=== PATIENT | female | born 1930 | race African-American/Black ===

== ENCOUNTER 2019-03-10 14:55 | Emergency (ER) | payer OTHER ==
--- NOTE | 2019-03-10 16:19 | RAD REPORT ---
EXAM DESCRIPTION: RAD - Chest Single View - 03/10/2019 3:50 pm CLINICAL HISTORY: CHEST PAIN Chest pain. COMPARISON: CHEST SINGLE VIEW dated 06/18/2015 FINDINGS: Portable technique limits examination quality. The lungs are grossly clear. The heart is normal in size. No displaced fractures. IMPRESSION: No acute intrathoracic process suspected.
[2019-03-10 16:33] LABS: Absolute Lymphocytes (CBC) 1.2 K/uL (0.7-4.9); Absolute Monocytes 0.4 K/uL (0.1-1.3); Absolute Neutrophil 3.8 K/uL (1.8-8.0); Basophils % 0.8 % (0-1.3); Eosinophils % 2.6 % (0-4.4); Hematocrit 36.2 % (36.0-45.0); Lymphocytes % 21.3 % (15.3-44.8); Monocytes % 7.5 % (3.3-12.3); RBC Red Blood Cell Count 3.99 M/uL (3.86-4.86)
[2019-03-10] MEDS ORDERED: ONDANSETRON 4 MG/2 ML VIAL ONE (16:33)
[2019-03-10] MEDS ORDERED: MORPHINE 2 MG/ML SYR ONE (16:33)
[2019-03-10 16:34] LABS: Protime INR 1.08
--- NOTE | 2019-03-10 16:42 | RAD REPORT ---
EXAM DESCRIPTION: CT - Head Brain Wo Cont - 03/10/2019 4:34 pm CLINICAL HISTORY: SYNCOPE Drowsiness, headache COMPARISON: HEAD BRAIN W O CONTRAST dated 06/18/2015 TECHNIQUE: All CT scans are performed using dose optimization technique as appropriate and may inclu de automated exposure control or mA/KV adjustment according to patient size. FINDINGS: Significant motion degradation is present, limiting the study quality.No gross hemorrhage, hydrocephalus midline shift suspected. The paranasal sinuses and mastoids are clear except for a 2 cm mucous retention cyst in the right max illary antrum. The calvarium is intact. IMPRESSION: Limited motion degraded study without gross acute finding.
[2019-03-10 16:51] LABS: Albumin 3.2 g/dL (3.4-5.0); Bilirubin Direct 0.1 mg/dL (0-0.2); Bilirubin Total 0.2 mg/dL (0.2-1.0); Magnesium 2.3 mg/dL (1.8-2.4); Potassium 4.5 mmol/L (3.5-5.1); Protein, Total 6.8 g/dL (6.4-8.2); Troponin (Emerg Dept Use Only) 0.02 ng/mL (0.0-0.045)
--- NOTE | 2019-03-10 17:30 | ER ---
Nurse's Notes [facility] Name: Reese Owens Age: 88 yrs Sex: Female : 1930 Arrival Date: 03/10/2019 Time: 14:57 Bed 2 Private MD: Diagnosis: Chest pain, unspecified Presentation: 03/10 14:59 Presenting complaint: EMS states: UNKNOWN. EMS CALLED FOR PT CRYING AND AGITATED, bp ANSWERS "HELP ME LORD" TO ALL POSED QUESTIONS. Transition of care: patient was not received from another setting of care. Onset of symptoms is unknown. Risk Assessment: Do you want to hurt yourself or someone else? Patient reports no desire to harm self or others. Initial Sepsis Screen: Does the patient meet any 2 criteria? No. Patient's initial sepsis screen is negative. Does the patient have a suspected source of infection? No. Patient's initial sepsis screen is negative. Care prior to arrival: None. 14:59 Method Of Arrival: EMS: [facility] bp 14:59 Acuity: JOSE MARIA 2 bp Triage Assessment: 15:01 General: Appears distressed, comfortable, slender, Behavior is agitated, anxious, bp crying. Pain: Unable to use pain scale. Does not appear to understand pain scale. EENT: No deficits noted. Neuro: Level of Consciousness is awake, confused, Oriented to none. Cardiovascular: No deficits noted. Respiratory: Airway is patent Respiratory effort is even, unlabored. GI: No signs and/or symptoms were reported involving the gastrointestinal system. : No signs and/or symptoms were reported regarding the genitourinary system. Derm: No deficits noted. Musculoskeletal: Circulation, motion, and sensation intact. Historical: - Allergies: 14:58 No Known Allergies; bp - Home Meds: 14:58 Unable to obtain [Active]; bp - PMHx: 14:58 Dementia; CHF; Hypertension; bp - Immunization history:: Adult Immunizations up to date. - Social history:: Smoking status: unknown. - Ebola Screening: : No symptoms or risks identified at this time. Screenin:03 Abuse screen: Denies threats or abuse. Denies injuries from another. Nutritional bp screening: No deficits noted. Tuberculosis screening: No symptoms or risk factors identified. Fall Risk No fall in past 12 months (0 pts). Secondary diagnosis (15 points) dementia, No IV (0 pts). Ambulatory Aid- None/Bed Rest/Nurse Assist (0 pts). Gait- Weak (10 pts.). Mental Status- Overestimates/Forgets Limitations (15 pts.). Total Vazquez Fall Scale indicates Low Risk Score (25-44 pts). Fall prevention measures have been instituted. Side Rails Up X 2 Placed close to Nursing Station Frequent Obs/Assesments occuring Family Present and informed to notify staff if they need to leave bedside As available Patient and Family Educated on Fall Prevention Program and strategies. Assessment: 15:03 General: SEE TRIAGE NOTE. bp 16:21 Reassessment: PT TO CT. bp 18:28 Reassessment: PT SEEN BY ADMIT MD, PT MEDICATED FOR HTN AND AGITATION. PER ADMIT MD, bp POSSIBLE D/C PENDING RESULTS OF CT. 19:47 General: Appears in no apparent distress. Behavior is drowsy, pt resting with eyes ak1 closed, resp even and unlabored. . Pain: Denies pain. Neuro: Level of Consciousness is pt sleeping after IV Ativan . Cardiovascular: No deficits noted. Respiratory: No deficits noted. GI: No signs and/or symptoms were reported involving the gastrointestinal system. : No signs and/or symptoms were reported regarding the genitourinary system. EENT: No signs and/or symptoms were reported regarding the EENT system. Derm: No signs and/or symptoms reported regarding the dermatologic system. Musculoskeletal: No signs and/or symptoms reported regarding the musculoskeletal system. 22:04 Reassessment: pt remains very drowsy. pt family stated they "had plenty of help" at [place] home to assist getting pt from the car to the house. pt daughter stated she would be staying with the pt over night. . Vital Signs: 15:03 Weight 45.36 kg; bp 15:10 BP 158 / 72; Pulse 82; Resp 24; Temp 98; Pulse Ox 97% ; bp 16:00 BP 156 / 105; Pulse 92; Resp 24; Pulse Ox 97% ; bp 16:20 BP 161 / 72; Pulse 85; Resp 24; Pulse Ox 100% ; bp 17:30 BP 184 / 112; Pulse 89; Resp 18; Pulse Ox 100% ; bp 18:27 BP 148 / 65; Pulse 89; Resp 16; Pulse Ox 98% ; bp 19:48 BP 148 / 61; Pulse 88; Resp 16; Temp 98; Pulse Ox 100% on R/A; Pain 0/10; ak1 ED Course: 14:57 Patient arrived in ED. bp 15:00 Triage completed. bp 15:01 Milad Veliz PA is PHCP. cp 15:01 Bimal Camejo MD is Attending Physician. cp 15:03 Arm band placed on. bp 15:03 Patient has correct armband on for positive identification. Bed in low position. Call bp light in reach. Side rails up X2. Adult w/ patient. 15:10 Maintain EMS IV. Dressing intact. Good blood return noted. Site clean \\T\\ dry. Gauge \\T\\ bp site: 22 GAUGE R WRIST. 15:30 Radiology exam delayed due to pt needs medication for exam. Nurse PJ to call when pt is mw3 ready. 15:41 Macario Malcolm, OSEI is Primary Nurse. bp 15:50 XRAY Chest (1 view) In Process Unspecified. EDMS 16:33 CT completed. Patient tolerated procedure well. Patient moved back from CT. mw3 16:33 CT Head Brain wo Cont In Process Unspecified. EDMS 17:28 Mary Lopez MD is Hospitalizing Provider. cp 17:39 Radiology exam delayed due to pt needs meds before scan. mw3 18:13 CT Chest Abdomen Pelvis W/O Contrast In Process Unspecified. EDMS 18:44 EKG done, by ED staff, reviewed by Milad LAY. kj1 19:48 No provider procedures requiring assistance completed. ak1 22:04 IV discontinued, intact, bleeding controlled, No redness/swelling at site. Pressure ak1 dressing applied. Administered Medications: 16:00 Drug: morphine 2 mg Route: IVP; Site: right wrist; bp 18:08 Follow up: Response: No adverse reaction bp 16:00 Drug: Zofran 4 mg Route: IVP; Site: right wrist; bp 18:09 Follow up: Response: No adverse reaction bp 18:00 Drug: NS 0.9% 250 ml Route: IV; Rate: bolus; Site: right wrist; bp 19:45 Follow up: IV Status: Completed infusion; IV Intake: 250ml ak1 18:00 Drug: Aspirin Chewable Tablet 324 mg Route: PO; bp 18:09 Follow up: Response: No adverse reaction bp 18:00 Drug: Ativan 0.5 mg Route: IVP; Site: right wrist; bp 18:38 Follow up: Response: Anxiety decreased bp Intake: 19:45 IV: 250ml; Total: 250ml. ak1 Outcome: 17:30 Decision to Hospitalize by Provider. cp 19:32 Discharge ordered by MD. cp 22:03 Discharged to home via wheelchair, with family. ak1 22:03 Condition: good 22:03 Discharge instructions given to family, Instructed on discharge instructions, follow up and referral plans. no drinking with medication, no driving heavy equipment, medication usage, Demonstrated understanding of instructions, follow-up care, medications, Prescriptions given X 1. 22:05 Patient left the ED. ak1 Signatures: Dispatcher [employer] EDMS Colleen Lafleur RN RN ak1 Chinyere Lee RN RN ph Milad Veliz, ROSANNE PA Macario Campoverde, OSEI RN bp Betty Vila mw3 Dionne Ayon kj1 Corrections: (The following items were deleted from the chart) 16:07 15:10 BP 158 / 72; Pulse 82bpm; ph bp
--- NOTE | 2019-03-10 17:30 | EDPHYS ---
Physician Documentation [facility] Name: Reese Owens Age: 88 yrs Sex: Female : 1930 Arrival Date: 03/10/2019 Time: 14:57 Bed 2 Private MD: ED Physician Bimal Camejo HPI: 03/10 15:11 This 88 yrs old Black Female presents to ER via EMS with complaints of AGITATION. cp 15:11 The patient or guardian reports chest pain that is located primarily in the anterior cp chest wall. 15:15 Onset: today. cp 15:15 Duration: The patient or guardian reports a single episode. Daughter reports patient cp clutched chest and c/o pain. Patient then seemed to pass out briefly. Historical: - Allergies: 14:58 No Known Allergies; bp - Home Meds: 14:58 Unable to obtain [Active]; bp - PMHx: 14:58 Dementia; CHF; Hypertension; bp - Immunization history:: Adult Immunizations up to date. - Social history:: Smoking status: unknown. - Ebola Screening: : No symptoms or risks identified at this time. ROS: 15:20 Constitutional: Negative for fever, poor PO intake. cp 15:20 Cardiovascular: Positive for chest pain. cp 15:20 Respiratory: Positive for shortness of breath. 15:20 Abdomen/GI: Negative for vomiting, diarrhea. 15:20 Neuro: Negative for altered mental status. 15:20 Unable to obtain ROS due to baseline dementia. Exam: 15:25 ECG was reviewed by the Attending Physician. cp 15:30 Constitutional: The patient appears in no acute distress, alert, awake, cp non-diaphoretic, non-toxic, well developed, well nourished. 15:30 Head/Face: Normocephalic, atraumatic. cp 15:30 Eyes: Periorbital structures: appear normal, Pupils: equal, round, and reactive to light and accomodation, Conjunctiva: normal, no exudate, no injection, Sclera: no appreciated abnormality, Lids and lashes: appear normal, bilaterally. 15:30 ENT: External ear(s): are unremarkable, Ear canal(s): are normal, clear, TM's: dullness, bilaterally, Nose: is normal, Mouth: Lips: moist, Oral mucosa: moist, Posterior pharynx: Airway: no evidence of obstruction, patent. 15:30 Neck: ROM/movement: is normal, is supple, without pain, no range of motions limitations, no meningismus, no nuchal rigidity. 15:30 Chest/axilla: Inspection: normal, Palpation: is normal, no crepitus, no tenderness. 15:30 Cardiovascular: Rate: normal, Rhythm: regular, JVD: is not appreciated. 15:30 Respiratory: the patient does not display signs of respiratory distress, Respirations: normal, no use of accessory muscles, no retractions, no splinting, no tachypnea, labored breathing, is not present, Breath sounds: are clear throughout, no decreased breath sounds, no stridor, no wheezing. 15:30 Abdomen/GI: Inspection: abdomen appears normal, Bowel sounds: active, all quadrants, Palpation: soft, in all quadrants, mild abdominal tenderness, in the right lower quadrant and left lower quadrant, rebound tenderness, is not appreciated, involuntary guarding, is elicited in the right lower quadrant and left lower quadrant. 15:30 Neuro: Orientation: no acute changes, per family, to person, Mentation: no acute changes, per family, Motor: moves all fours. 18:49 ECG was reviewed by the Attending Physician. cp Vital Signs: 15:03 Weight 45.36 kg; bp 15:10 BP 158 / 72; Pulse 82; Resp 24; Temp 98; Pulse Ox 97% ; bp 16:00 BP 156 / 105; Pulse 92; Resp 24; Pulse Ox 97% ; bp 16:20 BP 161 / 72; Pulse 85; Resp 24; Pulse Ox 100% ; bp 17:30 BP 184 / 112; Pulse 89; Resp 18; Pulse Ox 100% ; bp 18:27 BP 148 / 65; Pulse 89; Resp 16; Pulse Ox 98% ; bp 19:48 BP 148 / 61; Pulse 88; Resp 16; Temp 98; Pulse Ox 100% on R/A; Pain 0/10; ak1 MDM: 15:11 Patient medically screened. cp 15:30 Differential diagnosis: abnormal EKG, acute myocardial infarction, pneumonia, cp pneumothorax, unstable angina, UTI, sepsis, CVA. 17:25 Data reviewed: vital signs, nurses notes, lab test result(s), EKG, radiologic studies, cp CT scan, plain films. Physician consultation: Mary Lopez MD was contacted at 17:25, regarding admission, to the telemetry unit. and will see patient in ED, shortly. 18:05 Physician consultation: Mary Lopez MD in the emergency department to see patient at cp 17:35, and felt stable for discharge to home. 18:05 ED course: Will discharge to home if repeat troponin, EKG and CT results negative. cp 03/10 15:10 Order name: Basic Metabolic Panel cp 03/10 15:10 Order name: CBC with Diff cp 03/10 15:10 Order name: LFT's cp 03/10 15:10 Order name: Magnesium cp 03/10 15:10 Order name: NT PRO-BNP; Complete Time: 16:54 cp 03/10 15:10 Order name: PT-INR; Complete Time: 16:54 cp 03/10 15:10 Order name: Troponin (emerg Dept Use Only); Complete Time: 16:54 cp 03/10 15:10 Order name: Urine Microscopic Only; Complete Time: 18:12 cp 03/10 15:10 Order name: Lipase; Complete Time: 16:54 cp 03/10 15:12 Order name: Basic Metabolic Panel; Complete Time: 16:54 EDMS 03/10 16:55 Interpretation: Normal except: NA 146; CL 116; CO2 20; BUN 35; CRE 2.01; GFR 28; CA 8.0.cp 03/10 15:12 Order name: CBC with Automated Diff; Complete Time: 16:54 EDMS 03/10 15:12 Order name: Liver (Hepatic) Function; Complete Time: 16:54 EDMS 03/10 15:12 Order name: Magnesium; Complete Time: 16:54 EDMS 03/10 17:01 Order name: Urine Dipstick--Ancillary (enter results) ms 03/10 15:10 Order name: XRAY Chest (1 view); Complete Time: 16:54 cp 03/10 15:10 Order name: EKG; Complete Time: 15:13 cp 03/10 15:10 Order name: Cardiac monitoring; Complete Time: 16:19 cp 03/10 15:10 Order name: EKG - Nurse/Tech; Complete Time: 16:19 cp 03/10 15:10 Order name: IV Saline Lock; Complete Time: 16:18 cp 03/10 15:10 Order name: Labs collected and sent; Complete Time: 16:18 cp 03/10 15:10 Order name: O2 Per Protocol; Complete Time: 15:54 cp 03/10 15:11 Order name: CT Head Brain wo Cont; Complete Time: 16:54 cp 03/10 17:16 Order name: CT Chest Abdomen Pelvis W/O Contrast; Complete Time: 18:23 cp 03/10 18:12 Order name: EKG; Complete Time: 18:15 cp 03/10 18:12 Order name: Troponin I; Complete Time: 19:32 cp 03/10 15:10 Order name: O2 Sat Monitoring; Complete Time: 15:54 cp 03/10 15:10 Order name: Urine Dipstick-Ancillary (obtain specimen); Complete Time: 18:47 cp 03/10 17:25 Order name: Swallow Screen; Complete Time: 18:10 03/10 18:12 Order name: EKG - Nurse/Tech; Complete Time: 18:37 cp EC:25 Rate is 89 beats/min. Rhythm is regular. NE interval is normal. QRS interval is cp prolonged at 102 msec. QT interval is normal. T waves are Inverted in leads V4, V5, V6. Interpreted by me. Reviewed by me. 18:49 Rate is 85 beats/min. Rhythm is regular. NE interval is normal. QRS interval is normal cp at 100 msec. QT interval is prolonged at 400 msec. T waves are Inverted in leads V4, V5, V6. Interpreted by me. Reviewed by me. Administered Medications: 16:00 Drug: morphine 2 mg Route: IVP; Site: right wrist; bp 18:08 Follow up: Response: No adverse reaction bp 16:00 Drug: Zofran 4 mg Route: IVP; Site: right wrist; bp 18:09 Follow up: Response: No adverse reaction bp 18:00 Drug: NS 0.9% 250 ml Route: IV; Rate: bolus; Site: right wrist; bp 19:45 Follow up: IV Status: Completed infusion; IV Intake: 250ml ak1 18:00 Drug: Aspirin Chewable Tablet 324 mg Route: PO; bp 18:09 Follow up: Response: No adverse reaction bp 18:00 Drug: Ativan 0.5 mg Route: IVP; Site: right wrist; bp 18:38 Follow up: Response: Anxiety decreased bp Disposition: 20:30 Chart complete. 03/11 12:52 Co-signature as Attending Physician, Bimal Camejo MD. Disposition: 03/10/19 19:32 Discharged to Home. Impression: Chest pain, unspecified. - Condition is Stable. - Discharge Instructions: Nonspecific Chest Pain, Aspirin and Your Heart. - Prescriptions for Pepcid 20 mg Oral Tablet - take 1 tablet by ORAL route every 12 hours for 10 days; 20 tablet. - Medication Reconciliation Form, Thank You Letter, Antibiotic Education, Prescription Opioid Use form. - Follow up: Private Physician; When: 2 - 3 days; Reason: Recheck today's complaints. - Problem is new. - Symptoms have improved. Signatures: Dispatcher [employer] EDMS Colleen Lafleur RN RN ak1 Milad Veliz PA PA Bimal De La Rosa MD MD Macario Malcolm RN RN bp Corrections: (The following items were deleted from the chart) 03/10 16:55 16:55 Normal except: NA 146; CL 116; CO2 20; BUN 35; CRE 2.01; GFR 28. cp cp 18:11 17:30 Hospitalization Ordered by Mary Lopez MD for Observation. Preliminary cp diagnosis is Chest pain, unspecified; Syncope and collapse. Bed requested for Telemetry/MedSurg (observation). Status is Observation. Condition is Stable. Problem is new. Symptoms have improved. UTI on Admission? No. cp 18:54 15:12 Llamas ordered. cp bp 22:05 19:32 03/10/2019 19:32 Discharged to Home. Impression: Chest pain, unspecified. ak1 Condition is Stable. Forms are Medication Reconciliation Form, Thank You Letter, Antibiotic Education, Prescription Opioid Use. Follow up: Private Physician; When: 2 - 3 days; Reason: Recheck today's complaints. Problem is new. Symptoms have improved. cp
[2019-03-10 17:55] LABS: Urine Bacteria <20 /HPF (<20); Urine Culture Reflex Order NOT NEEDED; Urine RBC <5 /HPF (NONE SEEN)
--- NOTE | 2019-03-10 18:19 | RAD REPORT ---
EXAM DESCRIPTION: CT - Chest Abd Pelvis Wo Con - 03/10/2019 6:10 pm CLINICAL HISTORY: Chest and abdomen pain. lower abdomen pain;Chest pain COMPARISON: No comparisons TECHNIQUE: A limited noncontrast study was performed. All CT scans are performed using dose optimization technique as appropriate and may include automated exposure control or mA/KV adjustment according to patient size. FINDINGS: The lungs are mildly emphysematous but clear.No pleural or pericardial effusion.No intrath oracic adenopathy. The liver, spleen, pancreas, adrenal glands and kidneys are within normal limits. No bowel obstruction, free air, free fluid or abscess. The appendix is not identified as a discrete s tructure, however, no secondary findings of appendicitis are identified. Prominent sigmoid diverticu losis without diverticulitis. No pathologic lymphadenopathy in the abdomen or pelvis. Prominent lumbar degenerative changes. IMPRESSION: No acute finding is demonstrated on limited noncontrast study.
[2019-03-10] MEDS ORDERED: LORazepam 2 MG/ML VIAL ONE (18:20)
[2019-03-10] MEDS ORDERED: ASPIRIN 81 MG CHEWABLE TABLET ONE (18:20)
[2019-03-10] MEDS ORDERED: NA CHLORIDE 0.9% 250 ML ONE (18:20)
[2019-03-10 21:06] LABS: Urine Blood TRACE (NEG); Urine Glucose NEGATIVE (NEG); Urine Protein 1+ (NEG)
[2019-03-10 22:35] VITALS: TEMP 98
[2019-03-10 22:41] VITALS: BP 148/61; O2SAT 100
--- NOTE | 2019-03-10 23:21 | HP ---
internal medicine consult : 03/10/2019 Chief Complaint: Chest pain. History Of Present Illness: The patient is an 88-year-old woman with past medical history of hypertension, CHF, advanced dementia, GERD, depression, who was brought to the emergency room by her daughter for chest pain that was early in the morning. According to the patient's daughter, the patient was sitting and started to complain of chest pain for few seconds, then after that she put her head on her shoulders and stopped talking for a few seconds, then she was fine after that and according to the family, there was no recorded fever, cough , palpitations, shortness of breath, or any other complaints. At the time of my examination, the patient is confused and wants to go home and she denied any chest pain and was asking repeatedly to go home. In the ER, troponins were done and were negative, and EKG was done and was negative for acute ST-T wave changes. CT chest, abdomen, and pelvis was done and chest x-ray was unremarkable. The patient is DNI/DNR. Allergies: THE PATIENT HAS NO KNOWN ALLERGIES. Past Medical History: As above. Past Surgical History: Noncontributory. Family History: Reviewed. Noncontributory. Social History: The patient has advanced dementia and she lives with her family. Home Medications: Reviewed. The patient is on: 1. Lexapro 10 mg. 2. Aspirin 81 mg. 3. Donepezil 5 mg. 4. Isosorbide mononitrate 90 mg daily. 5. Metoprolol 25 mg daily. 6. Norvasc 10 mg daily. 7. Ranitidine 150 mg daily. Physical Examination: Vital Signs: Blood pressure 130/70, pulse rate of 70, afebrile, O2 saturation 97% on room air. General: The patient is confused, not in acute distress, lying comfortable on the stretcher. Neck: Supple. HEENT: Normocephalic, atraumatic. PERRLA. Cardiovascular: S1, S2. Regular rate and rhythm. No murmurs appreciated. Lungs: Bilateral air entry. No wheezing or crackles. No chest wall tenderness. Abdomen: Soft, nontender. Bowel sounds positive. Skin: No rash noted. Neurological: Could not be assessed. Laboratory Data: CBC was within normal limits. Chemistry: Sodium was 146, potassium of 4.5, BUN of 35, creatinine of 2. Lipase [place] 146. [place] 2545. UA was negative. Assessment And Plan: The patient with advanced dementia, who was complaining of chest pain, that is resolved as per family. At the time of my assessment, the patient denied any chest pain or shortness of breath, troponins were negative, and EKG was unremarkable. Recommended observation in the ER at this time and repeat another set of troponins. Chest CT, abdomen, and pelvis was unremarkable. Chronic congestive heart failure, not in exacerbation. Continue home medications. Advanced dementia. Continue Lexapro, donepezil. Hypertension. Continue home medications, isosorbide mononitrate, metoprolol, and Norvasc. JOSUE Voice ID: [id number] MTDD
--- NOTE | 2019-03-11 10:35 | EKG ---
Test Date: 2019-03-10 Test Time: 18:39:10 [employer] D[employer] Operator: ANGELA MEASUREMENT RESULTS: Intervals: Rate: 85 VA: 162 QRSD: 100 QT: 400 QTc: 476 [place]: P: 62 VA: 162 QRS: -5 T: -12 INTERPRETIVE STATEMENTS: Sinus rhythm with premature atrial complexes T wave abnormality, consider lateral ischemia Prolonged QT Abnormal ECG Compared to ECG 03/10/2019 15:18:50 Atrial premature complex(es) now present Prolonged QT interval now present T-wave abnormality still present Electronically Signed On 03-11-19 10:35:02 CDT by Carter Duran
--- NOTE | 2019-03-11 10:37 | EKG ---
Test Date: 2019-03-10 Test Time: 15:18:50 [employer] Technician: ANGELA MEASUREMENT RESULTS: Intervals: Rate: 89 MA: 164 QRSD: 102 QT: 384 QTc: 467 [place]: P: 74 MA: 164 QRS: 3 T: -23 INTERPRETIVE STATEMENTS: Normal sinus rhythm T wave abnormality, consider lateral ischemia Abnormal ECG Compared to ECG 06/18/2015 13:11:55 Possible ischemia now present Sinus bradycardia no longer present Left-axis deviation no longer present Intraventricular conduction delay no longer present T-wave abnormality still present Electronically Signed On 03-11-19 10:36:36 CDT by Carter Duran
== END 2019-03-10 22:05 | disposition home or self-care (01) ==
LOC: ER 14:55
DX: R07.9 Chest pain, unspecified (principal); F03.90 Unspecified dementia, unspecified severity, without behavioral disturbance, psychotic disturbance, mood disturbance, and anxiety; I11.0 Hypertensive heart disease with heart failure; I50.9 Heart failure, unspecified
CPT/HCPCS: 96361; 93005 ×2; 85025; 80048; 36415; 83735; 85610; 80076; 84484 ×2; 83690; 83880; 70450; 71250; 74176; 71045; 96375; 96374; 99284; J2270; J2405; 81003; 81015